=== PATIENT | male | born 1950 | race African-American/Black ===

== ENCOUNTER → 2019-10-18 | Outpatient (CLI) | payer OTHER ==
--- NOTE | 2019-10-18 12:13 | 2DMMODE ---
[place] [address] 2 D/M-MODE ECHOCARDIOGRAM [facility] Room[facility]#: [id number] Admission: 10/18/19 Attend Phys: Ervin Cortes MD Discharge: Date of : 54 Date of Service: 10/18/19 1213 Report #: [id number] THIS REPORT FOR: //name// APPROVED REPORT Study performed: 10/18/2019 10:19:49 EXAM: Comprehensive 2D, Doppler, and color-flow Echocardiogram Patient Location: Out-Patient BSA: 1.94 HR: 64 bpm BP: 120/75 mmHg Other Information Study Quality: Good Indications Tachycardia 2D Dimensions IVSd: 9.93 (7-11mm) LVOT Diam: 20.94 (18-24mm) LVDd: 44.38 mm PWd: 9.29 (7-11mm) Ascending Ao: 26.00 (22-36mm) LVDs: 29.03 (25-40mm) Aortic Root: 29.51 mm Volumes Left Atrial Volume (Systole) LA ESV Index: 11.30 mL/m2 Aortic Valve AoV Peak Kana.: 1.09 m/s AO Peak Gr.: 4.73 mmHg LVOT Max P.76 mmHg AO Mean Gr.: 2.03 mmHg LVOT Mean P.40 mmHg LVOT Max V: 0.97 m/s AO V2 VTI: 20.20 cm LVOT Mean V: 0.52 m/s JOSE (VTI): 3.21 cm2 LVOT V1 VTI: 18.83 cm Mitral Valve E/A Ratio: 1.22 MV Decel. Time: 151.25 ms MV E Max Kana.: 0.64 m/s MV PHT: 43.86 ms MVA (PHT): 5.02 [place]2 [place] [address] 2 D/M-MODE ECHOCARDIOGRAM Name: [facility] Room: [facility]#: [id number] Admission: 10/18/19 Attend Phys: Ervin Cortes MD Discharge: Date of : 54 Date of Service: 10/18/19 1213 Report #: [id number] TDI E/Lateral E': 4.27 E/Medial E': 5.33 Medial E' Kana.: 0.12 m/s Lateral E' Kana.: 0.15 m/s Pulmonary Valve PV Peak Kana.: 0.87 m/s PV Peak Gr.: 3.01 mmHg Tricuspid Valve RAP Estimate: 5.00 mmHg TR Peak Gr.: 29.18 mmHg RVSP: 34.18 mmHg PA Pressure: 34.18 mmHg Left Ventricle The left ventricle is normal size. There is normal LV segmental wall motion. There is normal left ventricular wall thickness. Left ventricular systolic function is normal. The left ventricular ejection fraction is within the normal range. LVEF is 55%. The left ventricular diastolic function is normal. Right Ventricle The right ventricle is normal size. The right ventricular systolic function is normal. Atria The left atrium size is normal. The right atrium size is normal. Aortic Valve The aortic valve is normal in structure. No aortic regurgitation is present. There is no aortic valvular stenosis. Mitral Valve The mitral valve is normal in structure. Mild mitral regurgitation. No evidence of mitral valve stenosis. Tricuspid Valve The tricuspid valve is normal in structure. Mild tricuspid regurgitation. Pulmonic Valve The pulmonary valve is normal in structure. Mild pulmonic regurgitation[place] [address] 2 D/M-MODE ECHOCARDIOGRAM Name: [facility] Room: [facility]#: [id number] Admission: 10/18/19 Attend Phys: Ervin Cortes MD Discharge: Date of : 54 Date of Service: 10/18/19 1213 Report #: [id number] The aortic root is normal in size. IVC is normal in size and collapses >50% with inspiration. Pericardium There is no pericardial effusion. <Conclusion> The left ventricle is normal size. There is normal left ventricular wall thickness. Left ventricular systolic function is normal. The left ventricular ejection fraction is within the normal range. LVEF is 55%. The left ventricular diastolic function is normal. The right ventricle is normal size. The left atrium size is normal. The aortic valve is normal in structure. The mitral valve is normal in structure. Mild mitral regurgitation. The tricuspid valve is normal in structure. Mild tricuspid regurgitation. IVC is normal in size and collapses >50% with inspiration. There is no pericardial effusion. There is normal LV segmental wall motion. <ELECTRONICALLY SIGNED> By: Austin Kaur MD, FACC 10/18/19 121 12 12 Austin Kaur MD, FACC /INF
--- NOTE | 2019-10-18 15:05 | EKG ---
[place] [address] ELECTROCARDIOGRAM REPORT Name: [facility] Room: [facility]#: [id number] Admission: 10/18/19 Attend Phys: Ervin Cortes MD Discharge: Date of : 54 Report #: [id number] THIS REPORT FOR: //name// [facility] Test Date: 2019-10-18 Test Time: 10:27:48 Pat Name: [facility] Department: Room: Gender: M [employer]: : [id number] Requested By: Ervin Cortes Order Number: [id number] Reading MD: Austin Kaur Measurements Intervals Reynolds Rate: 58 P: 70 CT: 134 QRS: 69 QRSD: 82 T: -42 QT: 407 QTc: 400 Interpretive Statements Sinus rhythm Borderline T abnormalities, inferior leads No previous ECG available for comparison Electronically Signed On 10-18-2019 15:05:06 PROPOSAL COORDINATOR by Austin Kaur [email or web address] <ELECTRONICALLY SIGNED> By: Austin Kaur MD, [facility] 10/18/19 1505 1027 1027 Austin Kaur MD, FACC /EPI
== END ==
LOC: M.CRD 10:11
DX: I08.8 Other rheumatic multiple valve diseases (principal)